=== PATIENT | male | born 1990 | race Native Hawaiian/Other Pacific Islander ===

== ENCOUNTER 2017-10-31 09:06 | Outpatient (CLI) | payer OTHER | END 2017-10-31 21:10 | disposition home or self-care (01) | LOC: US 09:06 | DX: R60.0 Localized edema (principal) ==

== ENCOUNTER 2019-05-06 09:56 | Outpatient (CLI) | payer OTHER | END 2019-05-06 23:01 | disposition home or self-care (01) | LOC: US 09:56 | DX: R60.0 Localized edema (principal) ==

== ENCOUNTER 2021-12-24 15:19 | Emergency (ER) | payer OTHER ==
[~2021-12-24] VITALS: Ht 165.1 cm; Wt 181.4 kg
[2021-12-24 15:19] VITALS: TEMP 97
[2021-12-24 15:44] VITALS: BP 138/89
[2021-12-24 16:09] LABS: PLATELET COUNT 298 K/uL (142-355)
[2021-12-24 16:12] LABS: POTASSIUM 3.3 mmol/L (3.6-5.2)
== END 2021-12-24 17:46 | disposition expired ==
LOC: ED 15:19
PROVIDERS: Emergency Medicine
PROC: 5A12012 Performance of Cardiac Output, Single, Manual (ICD-10-PCS; principal; 2021-12-24)
PROC: 0BH17EZ Insertion of Endotracheal Airway into Trachea, Via Natural or Artificial Opening (ICD-10-PCS; 2021-12-24)
DX: U07.1 COVID-19 (principal)
CPT/HCPCS: 80053; 82550; 82805; 84484; 85027; 85379; 87635; 93005; 96360; 96374; 96375; 99285; 99291; J0171; J2060; U0003